=== PATIENT | female | born 1995 | race Caucasian/White ===

== ENCOUNTER 2020-10-03 04:40 | Emergency (ER) | payer OTHER, SELFPAY ==
[2020-10-03 04:47] VITALS: BP 132/84; BP 145/83; PULSE 102; PULSE 123; RESP 16; TEMP 37.6; O2SAT 96; O2SAT 97; BMI 28.1
--- NOTE | 2020-10-03 04:56 | XR_ITS ---
EXAMINATION: XR CHEST CLINICAL INFORMATION: Cough COMPARISON: 03/31/2007 TECHNIQUE: Frontal view of the chest was obtained. FINDINGS: Lung volumes are symmetric. There is patchy airspace opacity at the right lung base in the infrahilar region. No left lung consolidation is seen. No evidence of pneumothorax or significant pleural effusion. The cardiomediastinal contour is unremarkable. No acute osseous findings are seen. XR/XR chest 1V IMPRESSION: Patchy right infrahilar airspace opacity suspicious for pneumonia. Radiographic followup after treatment/resolution of symptoms is recommended.
--- NOTE | 2020-10-03 04:59 | ED_ITS ---
HPI - General Adult General Chief complaint: Nausea/Vomiting/Diarrhea Stated complaint: Vomiting Time Seen by Provider: 10/03/20 04:44 Source: patient Mode of arrival: EMS Limitations: no limitations History of Present Illness HPI narrative: Patient comes emergency room complaining of cough, nausea, vomiting. Patient states on October 11 she had a tonsillectomy done. Yesterday patient started coughing and vomiting. At this time, patient reports mild episodes of bloody sputum, mild bloody streaking, no blood clots, complaining of subjective fever and chills. MD complaint: Cough, vomiting Related Data Previous Rx's Medication Instructions Recorded amoxicillin 875 mg-potassium 1 tab PO BID #20 tab 06/21/20 clavulanate 125 mg tablet levofloxacin 500 mg PO DAILY #6 tab 10/03/20 ondansetron HCl [Zofran] 4 mg PO Q6H PRN #14 tab 10/03/20 Allergies Allergy/AdvReac Type Severity Reaction Status Date / Time No Known Allergies Allergy Verified 07/17/20 12:15 Review of Systems Review of Systems: Constitutional : Complaining of fever, chills, body aches fatigue ENT/Mouth : No Hearing loss, No Ear Pain, No Nasal Congestion, No Sinus Pain, complaining of localized pain, status post tonsillectomy, mild bloody streaking of sputum, sore throat from coughing so much Eyes: No Eye Pain, No Swelling, No Redness, No Foreign Body, No Discharge, No Vision Changes Cardiovascular : No Chest Pain, No SOB, No Dyspnea on Exertion, No Orthopnea, No Edema, No Palpitations Respiratory : No Cough, No Sputum, No Wheezing, No Smoke Exposure, No Dyspnea Gastrointestinal : No Nausea, No Vomiting, No Diarrhea, No Constipation, No abdominal Pain, No Hematochezia, No Melena Genitourinary : no irregular bleeding, No Dysuria, No Urinary Frequency, No Hematuria, No Urinary Incontinence, No Urgency, No Flank Pain, No Urinary Flow Changes, No Hesitancy Musculoskeletal : No joint pain, No Myalgias, No Joint Swelling Skin : No Skin Lesions, No rash Neuro : No Weakness, No Numbness, No Paresthesias, No Loss of Consciousness, No Dizziness, No Headache Psych : No Anxiety/Panic, No Depression, No SI/HI/AH/VH, No Social Issues, Heme/Lymph: No Bruising, No Bleeding,No Lymphadenopathy Endocrine : No Polyuria, No Polydipsia, No Temperature Intolerance [facility] Past Medical History Medical History ADD (attention deficit disorder) Eczema Surgical History History of History of tonsillectomy Family History Family History (Updated 07/17/20 @ 12:24 by Socorro Thomas, RMA, [employer]) Father HTN (hypertension) Mother Insulin dependent diabetes mellitus Sister Anxiety disorder Paternal Grandmother Lung cancer Sister No problems noted. Sister No problems noted. Sister No problems noted. Social History Social History Advance Directives: No Physical Exam Vital Signs: Vital Signs: Last Vital Signs Temp 99.6 F 10/03/20 04:47 Pulse 123 H 10/03/20 04:47 Resp 16 10/03/20 04:47 BP 145/83 H 10/03/20 04:47 Pulse Ox 97 10/03/20 04:47 Body Mass Index 28.1 Appearance: Alert. Oriented X3. No acute distress. Mildly diaphoretic Eyes: Pupils equal, round and reactive to light. ENT: Appearance of pharynx is consistent with a recent tonsillectomy no pus, no blood visualized. Bilateral ear canals within normal limits, bilateral tympanic membranes within normal limits Neck: Normal inspection. CVS: Normal heart rate and rhythm. Pulses normal. Normal S1 and S2 Respiratory: No respiratory distress. Breath sounds normal. No Wheezing. No rales , actively dry coughing Abdomen: Soft and nontender. No rigidity. No distention. good BS x4 Skin: Skin warm and dry. Normal skin color. Normal skin turgor. Extremities: No lower extremity edema. No lower extremity edema. No Lacerations. No Rash Neuro: Oriented X 3. No motor deficit. No sensory deficit. Moving all extermities. No slurred speech. Course Course Course Narrative: Patient's x-ray suspicious for pneumonia. Patient being t reated with IV Levaquin and 2L NS, zofran. White blood cell count and lactic acid within normal limits, no fever, at this time sepsis is not suspected. COVID 19 18 results are negative. Patient's oxygen saturation 95% on room air, while walking 96% with no shortness of breath, no dizziness. Patient's COVID test is negative. Pt receiving 2nd Liter of NS, pt will likely do better at home, than keeping her as inpatient and exposing her to covid. Pt not needing oxygen at all. Pt has no hx of pulmonary disease. Medical Decision Making Lab Data Result diagrams: 10/03/20 05:09 10/03/20 05:09 Labs: Lab Results 10/03/20 10/03/20 10/03/20 Range/Units 05:09 05:09 05:09 WBC 10.6 (4.8-10.8) X10*3/uL RBC 3.92 L (4.20-5.50) X10*6/uL Hgb 12.2 (12.0-16.0) g/dl Hct 36.6 L (37-47) % MCV 93.4 (80-98) fL MCH 31.1 (27.0-33.0) pg MCHC 33.3 (31.0-35.0) g/dl RDW 11.9 (11.0-16.0) % Plt Count 173 (160-400) X10*3/uL MPV 10.0 (9.4-12.3) fL Immature Gran % (Auto) 0.3 (0.0-0.4) % Neut % (Auto) 85.6 H (45-73) % Lymph % (Auto) 8.4 L (20-40) % [place] % (Auto) 5.3 (2-11) % Eos % (Auto) 0.2 (0-4) % Baso % (Auto) 0.2 (0-2) % Lymph # (Auto) 0.9 L (1.2-4.9) X10*3/uL [place] # (Auto) 0.6 (0.1-1.2) X10*3/uL Eos # (Auto) 0.0 (0.0-0.4) X10*3/uL Baso # (Auto) 0.0 (0.0-0.2) X10*3/uL Abs Immat Gran (auto) 0.03 (0.00-0.03) X10*3/uL Absolute Neuts (auto) 9.1 H (2.0-8.3) X10*3/uL Absolute Nucleated RBC 0.000 (0.0-0.012) X10*3/uL Nucleated RBC % (auto) 0.0 (0.0-0.2) /100WBC Sodium 138 (135-145) mmol/L Potassium 3.8 (3.3-5.1) mmol/l Chloride 106 (96-108) mmol/L Carbon Dioxide 24 (22-29) mmol/L Anion Gap 12 (12-20) BUN 6 L (9-16) mg/dL Creatinine 0.72 (0.5-1.4) mg/dL Estim Creat Clear Calc 128.9 Estimated GFR > 60 Random Glucose 108 (60-115) mg/dL Lactic Acid 0.9 (0.5-2.0) mmol/L Calcium 8.0 L (8.4-10.2) mg/dL Coronavirus (PCR) (Negative) Influenza Type A (PCR) (Negative) Influenza Type B (PCR) (Negative) RSV RNA Qual (PCR) (Negative) 10/03/20 Range/Units 05:09 WBC (4.8-10.8) X10*3/uL RBC (4.20-5.50) X10*6/uL Hgb (12.0-16.0) g/dl Hct (37-47) % MCV (80-98) fL MCH (27.0-33.0) pg MCHC (31.0-35.0) g/dl RDW (11.0-16.0) % Plt Count (160-400) X10*3/uL MPV (9.4-12.3) fL Immature Gran % (Auto) (0.0-0.4) % Neut % (Auto) (45-73) % Lymph % (Auto) (20-40) % [place] % (Auto) (2-11) % Eos % (Auto) (0-4) % Baso % (Auto) (0-2) % Lymph # (Auto) (1.2-4.9) X10*3/uL [place] # (Auto) (0.1-1.2) X10*3/uL Eos # (Auto) (0.0-0.4) X10*3/uL Baso # (Auto) (0.0-0.2) X10*3/uL Abs Immat Gran (auto) (0.00-0.03) X10*3/uL Absolute Neuts (auto) (2.0-8.3) X10*3/uL Absolute Nucleated RBC (0.0-0.012) X10*3/uL Nucleated RBC % (auto) (0.0-0.2) /100WBC Sodium (135-145) mmol/L Potassium (3.3-5.1) mmol/l Chloride (96-108) mmol/L Carbon Dioxide (22-29) mmol/L Anion Gap (12-20) BUN (9-16) mg/dL Creatinine (0.5-1.4) mg/dL Estim Creat Clear Calc Estimated GFR Random Glucose (60-115) mg/dL Lactic Acid (0.5-2.0) mmol/L Calcium (8.4-10.2) mg/dL Coronavirus (PCR) NEGATIVE (Negative) Influenza Type A (PCR) NEGATIVE (Negative) Influenza Type B (PCR) NEGATIVE (Negative) RSV RNA Qual (PCR) NEGATIVE (Negative) Imaging Data Chest x-ray: Radiologist's impression: FINDINGS: Lung volumes are symmetric. There is patchy airspace opacity at the right lung base in the infrahilar region. No left lung consolidation is seen. No evidence of pneumothorax or significant pleural effusion. The cardiomediastinal contour is unremarkable. No acute osseous findings are seen. XR/XR chest 1V IMPRESSION: Patchy right infrahilar airspace opacity suspicious for pneumonia. Radiographic followup after treatment/resolution of symptoms is recommended. Discharge Plan Discharge Clinical Impression: Pneumonia, Vomiting Patient Disposition: Home, Self-Care Instructions: Pneumonia (ED) Additional Instructions: If you have any shortness of breath, worsening symptoms, please return to the emergency room. Otherwise,please follow-up with your primary care physician tomorrow. If you have any worsening or new symptoms, please return to the emergency room or call 911 Prescriptions: New levofloxacin 500 mg tablet 500 mg PO DAILY Qty: 6 RF: 0 ondansetron HCl [Zofran] 4 mg tablet 4 mg PO Q6H PRN (Reason: nausea and vomiting) Qty: 14 RF: 0 No Action amoxicillin-pot clavulanate [Augmentin] 875-125 mg tablet 1 tab PO BID Qty: 20 RF: 0
[2020-10-03 05:15] LABS: Basophils Percent Auto 0.2 % (0-2); Eosinophils Percent Auto 0.2 % (0-4); Hematocrit 36.6 % (37-47); Hemoglobin 12.2 g/dl (12.0-16.0); Imm Gran Abs Auto 0.03 X10*3/uL (0.00-0.03); Imm Gran Pct Auto 0.3 % (0.0-0.4); Lymphocytes Absolute Auto 0.9 X10*3/uL (1.2-4.9); Lymphocytes Percent Auto 8.4 % (20-40); Mean Corpuscular HGB Conc 33.3 g/dl (31.0-35.0); Mean Corpuscular Hemoglobin 31.1 pg (27.0-33.0); Mean Corpuscular Volume 93.4 fL (80-98); Monocytes Absolute Auto 0.6 X10*3/uL (0.1-1.2); Monocytes Percent Auto 5.3 % (2-11); Neutrophils Absolute Auto 9.1 X10*3/uL (2.0-8.3); Neutrophils Percent Auto 85.6 % (45-73); Platelet Count 173 X10*3/uL (160-400); Red Blood Count 3.92 X10*6/uL (4.20-5.50); Red Cell Distribution Width 11.9 % (11.0-16.0); White Blood Count 10.6 X10*3/uL (4.8-10.8)
[2020-10-03 05:16] LABS: MANUAL DIFF FLAG NO
[2020-10-03] MEDS: Benzonatate 100 MG CAPSULE PO (05:21)
[2020-10-03] MEDS: 0.9 % Sodium Chloride 1,000 ML 999 ML IVCONT ×2 (05:21→06:25)
[2020-10-03] MEDS: ondansetron HCL 4 MG/2 ML VIAL IVPUSH (05:21)
[2020-10-03 05:31] LABS: Lactic Acid 0.9 mmol/L (0.5-2.0)
[2020-10-03 05:34] LABS: Anion Gap 12 (12-20); Blood Urea Nitrogen 6 mg/dL (9-16); Carbon Dioxide 24 mmol/L (22-29); Chloride 106 mmol/L (96-108); Creatinine Clr Calc Pharmacy 128.9; Estimated Glomerular Filt Rate > 60; Glucose Random 108 mg/dL (60-115); Potassium 3.8 mmol/l (3.3-5.1); Sodium 138 mmol/L (135-145)
[2020-10-03] MEDS: Acetaminophen 325 MG TABLET 650 MG PO (06:06)
[2020-10-03] MEDS: levoFLOXacin/D5W 500 MG/100 ML PIGGYBACK 100 MG IV (06:08)
[2020-10-03 06:12] LABS: Influenza A PCR NEGATIVE (Negative); Influenza B PCR NEGATIVE (Negative); Resp Syncy Virus RNA Qual PCR NEGATIVE (Negative); SARS COV2 PCR INHOUSE NEGATIVE (Negative)
[2020-10-03 06:37] VITALS: BP 131/81; PULSE 111; RESP 20; TEMP 38.1; O2SAT 95
--- NOTE | 2020-10-03 06:52 | PC.NURSE ---
pt ambulatory down hallway on room air, spo2 remained 96%. pt in no distress, uncomfortable from the body aches and fever.
[2020-10-03] MEDS: Ibuprofen 600 MG TABLET PO (07:04)
[2020-10-03] MEDS: Prochlorperazine Edisylate 10 MG/2 ML VIAL IVPUSH (07:05)
[2020-10-03] MEDS: Lidocaine HCl Viscous 2 % 15 ML SOLUTION MUCOUS MEM (07:07)
== END 2020-10-03 08:08 | disposition home or self-care (01) ==
PROVIDERS: Emergency Provider Emergency Medicine
DX: J18.9 Pneumonia, unspecified organism (principal); R11.2 Nausea with vomiting, unspecified; R05 Cough; Z79.899 Other long term (current) drug therapy; Z20.822 Contact with and (suspected) exposure to COVID-19
CPT/HCPCS: 0241U; 36415; 71045; 80048; 83605; 85025; 87040; 96361; 96365; 96375; 99284; J1100; J1956; J2405

== ENCOUNTER 2020-11-27 10:27 | Outpatient (REF) | payer OTHER, SELFPAY ==
[2020-11-29 16:47] LABS: Norfentanyl, Ur >500.0 ng/mL (<0.5)
== END 2020-11-27 10:28 | disposition home or self-care (01) ==
LOC: HO.LNP 10:27
PROVIDERS: Visit Provider Internal Medicine
DX: F11.20 Opioid dependence, uncomplicated (principal)
CPT/HCPCS: 80305; 80354; 81025; 99202

== ENCOUNTER → 2020-12-03 10:58 | Outpatient (BNVA) | payer OTHER, SELFPAY | PROVIDERS: Visit Provider Internal Medicine | DX: F11.20 Opioid dependence, uncomplicated (principal) | CPT/HCPCS: 80305; 99212 ==

== ENCOUNTER 2022-08-27 12:55 | Outpatient (REF) | payer OTHER, SELFPAY ==
--- NOTE | ~2022-08-27 | XR_ITS ---
EXAMINATION: XR CERVICAL SPINE CLINICAL INFORMATION: Pain COMPARISON: None TECHNIQUE: 4 views of the cervical spine were obtained. FINDINGS: Cervical vertebral bodies are normal in height and there is no vertebral compression or visible fracture, spondylolisthesis, disc narrowing, or prevertebral soft tissue swelling. The odontoid appears intact. No erosive changes. Normal cervical lordosis. Lung apices clear. XR/XR cervical spine 2V IMPRESSION: Unremarkable cervical spine.
--- NOTE | ~2022-08-27 | XR_ITS ---
EXAMINATION: XR HAND, LEFT CLINICAL INFORMATION: Pain COMPARISON: None TECHNIQUE: Left hand is imaged in 4 views. FINDINGS: No fracture or dislocation or destructive process. Normal bony mineralization. Slight negative ulnar variance. Pronator quadratus fat pad normal. No carpal joint narrowing or erosive change. The MCP and interphalangeal joints are unremarkable. XR/XR hand LT min 3V IMPRESSION: Normal left hand.
--- NOTE | ~2022-08-27 | XR_ITS ---
EXAMINATION: XR SHOULDER, LEFT CLINICAL INFORMATION: Pain COMPARISON: None TECHNIQUE: Left shoulder is imaged in 4 views. FINDINGS: No fracture or dislocation or destructive process. The glenohumeral joint appears normal. The acromioclavicular alignment is normal. No visible rotator cuff calcifications. Left lung apex clear. No pneumothorax or pleural reaction. XR/XR shoulder LT min 2V IMPRESSION: Normal left shoulder.
== END 2022-08-27 12:56 | disposition home or self-care (01) ==
LOC: HO.XRAY 12:55
PROVIDERS: Visit Provider Emergency Medicine Emergency Medical Services
DX: M79.642 Pain in left hand (principal); M54.2 Cervicalgia; M25.512 Pain in left shoulder
CPT/HCPCS: 72040; 73030; 73130

== ENCOUNTER 2022-09-10 11:53 | Outpatient (REF) | payer OTHER, SELFPAY ==
--- NOTE | ~2022-09-10 | XR_ITS ---
EXAMINATION: XR KNEE, BILATERAL CLINICAL INFORMATION: Bilateral knee pain. COMPARISON: None TECHNIQUE: 2 views each knee. FINDINGS: LEFT KNEE: There is maintained tricompartment joint space. No bony erosive changes. No loose bodies seen. There is no suprapatellar joint effusion. No soft tissue swelling. RIGHT KNEE: There is maintained tricompartment joint space without bony erosive changes, loose bodies or joint effusion. No bony erosive changes. XR/XR knee RT 2V IMPRESSION: Unremarkable bilateral knee exam.
--- NOTE | ~2022-09-10 | XR_ITS ---
EXAMINATION: XR KNEE, BILATERAL CLINICAL INFORMATION: Bilateral knee pain. COMPARISON: None TECHNIQUE: 2 views each knee. FINDINGS: LEFT KNEE: There is maintained tricompartment joint space. No bony erosive changes. No loose bodies seen. There is no suprapatellar joint effusion. No soft tissue swelling. RIGHT KNEE: There is maintained tricompartment joint space without bony erosive changes, loose bodies or joint effusion. No bony erosive changes. XR/XR knee LT 2V IMPRESSION: Unremarkable bilateral knee exam.
== END 2022-09-10 11:54 | disposition home or self-care (01) ==
LOC: HO.XRAY 11:53
PROVIDERS: PCP Nurse Practitioner Family; Visit Provider Chiropractor
DX: M25.561 Pain in right knee (principal); M25.562 Pain in left knee
CPT/HCPCS: 73560